=== PATIENT | male | born 1955 | race Caucasian/White ===

== ENCOUNTER → 2016-09-14 | Outpatient (CLI) | payer OTHER ==
[~2016-09-14] MED LIST: COLESTID1 GM PO; CYCLOBENZAPRINE10 MG PO; FLEXERIL10 MG PO; FLEXERIL5 MG PO; FOLIC ACID1 MG PO; Habitrol,Nicoderm CQ TD; LOPRESSOR50 MG PO; Lopressor PO; METOPROLOL TARTATE PO; MOBIC15 MG PO; MOBIC7.5 MG PO; NORVASC10 MG PO; Norvasc PO; PRILOSEC20 MG PO; PROVENTIL HFA6.7 GM IH; SPIRIVA1 INHALATI IH; VITAMIN B1 PO
== END | disposition home or self-care (01) ==
LOC: RES 10:57
DX: Z02.71 Encounter for disability determination (principal)
CPT/HCPCS: 94060; 94729; 94760

== ENCOUNTER 2016-11-30 10:58 | Day surgery (SDC) | payer OTHER ==
[~2016-11-30] VITALS: Ht 182.9 cm; Wt 79.4 kg
[2016-11-30] MEDS ORDERED: ASPIR 8181 M1 PO (11:30)
[2016-11-30] MEDS ORDERED: PERCOCET 5/31 TABLET PO (11:31)
[2016-11-30 11:43] VITALS: BP 121/80
[2016-11-30 14:59] VITALS: BP 140/87
[2016-11-30 15:53] VITALS: BP 139/80
== END 2016-11-30 15:55 | disposition home or self-care (01) ==
LOC: SDC 10:58
PROC: 0JBK0ZZ Excision of Left Hand Subcutaneous Tissue and Fascia, Open Approach (ICD-10-PCS; principal; 2016-11-30)
DX: M72.0 Palmar fascial fibromatosis [Dupuytren] (principal); I10 Essential (primary) hypertension; J44.9 Chronic obstructive pulmonary disease, unspecified; F10.20 Alcohol dependence, uncomplicated; F17.200 Nicotine dependence, unspecified, uncomplicated
CPT/HCPCS: J0690; J1100; J1170; J2405; J3010; S0020

== ENCOUNTER 2017-06-02 22:12 | Emergency (ER) | payer OTHER ==
[~2017-06-02] VITALS: Ht 182.9 cm; Wt 70.1 kg
[~2017-06-02 22:12] MED LIST changes: +ASPIR 8181 M1 PO; +PERCOCET 5/31 TABLET PO
[2017-06-02 22:31] LABS: HEMATOCRIT 42.1 % (38.0-50.0); HEMOGLOBIN 15.6 G/DL (12.5-16.6); MCH 37.5 PG (29.0-34.0); MCHC 37.1 G/DL (30.0-36.0); MCV 101.2 FL (86-99); PLATELET COUNT 96 K/uL (156-360); RBC DIS.WIDTH-CV 11.9 % (11.8-14.6); RBC DIS.WIDTH-SD 44.3 % (39-53); RED BLOOD COUNT 4.16 M/uL (4.00-5.50); WHITE BLOOD COUNT 4.9 K/uL (4.1-10.2)
[2017-06-02 22:44] LABS: CHLORIDE 101 mEq/L (99-109); POTASSIUM 3.9 mEq/L (3.7-5.4); SODIUM 139 mEq/L (136-147)
[2017-06-02 22:45] LABS: GLUCOSE 104 mg/dL (70-99)
[2017-06-02 22:49] LABS: CREATININE 0.7 mg/dL (0.6-1.3); GFR ESTIMATE (CALCULATED) > 59 mL/min/ (58.99-99999)
[2017-06-02 22:50] LABS: UREA NITROGEN (BUN) 8 mg/dL (9-23)
[2017-06-02 22:55] LABS: TROP-I INTERPRETATION NEGATIVE; TROPONIN-I 0.01 ng/mL (0.0-0.30)
[2017-06-02] MEDS ORDERED: DOXYCYCLINE HY100 MG PO (23:28)
[2017-06-03 00:09] VITALS: BP 123/85
== END 2017-06-03 00:09 | disposition home or self-care (01) ==
LOC: EME → EDBD 22:12 → EME 06-03 00:09
DX: J18.9 Pneumonia, unspecified organism (principal); I10 Essential (primary) hypertension; J44.0 Chronic obstructive pulmonary disease with (acute) lower respiratory infection; F17.200 Nicotine dependence, unspecified, uncomplicated; Z79.82 Long term (current) use of aspirin; Z99.81 Dependence on supplemental oxygen; Z87.19 Personal history of other diseases of the digestive system
CPT/HCPCS: 71046; 80048; 84484; 85027; 93005; 99281; 99285

== ENCOUNTER 2017-06-06 20:32 | Emergency (ER) | payer OTHER ==
[~2017-06-06] VITALS: Ht 182.9 cm; Wt 77.3 kg
[~2017-06-06 20:32] MED LIST changes: +DOXYCYCLINE HY100 MG PO
[2017-06-06 20:55] VITALS: BP 147/91
== END 2017-06-06 23:30 | disposition home or self-care (01) ==
LOC: EME 20:32
PROC: 0HQ0XZZ Repair Scalp Skin, External Approach (ICD-10-PCS; principal; 2017-06-06)
DX: S01.01XA Laceration without foreign body of scalp, initial encounter (principal); W10.1XXA Fall (on)(from) sidewalk curb, initial encounter; Y92.480 Sidewalk as the place of occurrence of the external cause; F17.200 Nicotine dependence, unspecified, uncomplicated; Z79.82 Long term (current) use of aspirin
CPT/HCPCS: 70450; 99281; 99284

== ENCOUNTER 2017-07-31 16:17 | Emergency (ER) | payer OTHER ==
[~2017-07-31] VITALS: Ht 182.9 cm; Wt 63.8 kg
[~2017-07-31 16:17] MED LIST changes: -VITAMIN B1 PO; +VITAMIN B12 100MCG PO
[2017-07-31 19:38] VITALS: BP 128/97
== END 2017-07-31 19:37 | disposition home or self-care (01) ==
LOC: EME 16:17
DX: S61.412A Laceration without foreign body of left hand, initial encounter (principal); S51.812A Laceration without foreign body of left forearm, initial encounter; F10.129 Alcohol abuse with intoxication, unspecified; W01.0XXA Fall on same level from slipping, tripping and stumbling without subsequent striking against object, initial encounter; F12.90 Cannabis use, unspecified, uncomplicated; J43.9 Emphysema, unspecified; F17.200 Nicotine dependence, unspecified, uncomplicated; Y90.9 Presence of alcohol in blood, level not specified
CPT/HCPCS: 70450; 71046; 99281; 99283

== ENCOUNTER 2017-08-01 20:18 | Inpatient (IN) | payer OTHER ==
[~2017-08-01] VITALS: Ht 182.9 cm; Wt 53.0 kg
[2017-08-01 21:42] LABS: CHLORIDE 89 mEq/L (99-109); POTASSIUM 3.3 mEq/L (3.7-5.4); SODIUM 130 mEq/L (136-147)
[2017-08-01 21:43] LABS: MAGNESIUM 2.1 mg/dL (1.3-2.7)
[2017-08-01 21:44] LABS: GLUCOSE 98 mg/dL (70-99)
[2017-08-01 21:47] LABS: SERUM ETHYL ALCOHOL 233 mg/dL
[2017-08-01 21:48] LABS: CREATININE 0.6 mg/dL (0.6-1.3); GFR ESTIMATE (CALCULATED) > 59 mL/min/ (58.99-99999)
[2017-08-01 21:49] LABS: UREA NITROGEN (BUN) 5 mg/dL (9-23)
[2017-08-01 21:52] LABS: TROP-I INTERPRETATION NEGATIVE; TROPONIN-I 0.02 ng/mL (0.0-0.30)
[2017-08-01 22:27] LABS: HEMATOCRIT 38.9 % (38.0-50.0); HEMOGLOBIN 14.2 G/DL (12.5-16.6); MCH 36.7 PG (29.0-34.0); MCHC 36.5 G/DL (30.0-36.0); MCV 100.5 FL (86-99); PLATELET COUNT 80 K/uL (156-360); RBC DIS.WIDTH-SD 45.1 % (39-53); RED BLOOD COUNT 3.87 M/uL (4.00-5.50); WHITE BLOOD COUNT 4.7 K/uL (4.1-10.2)
[2017-08-01 22:44] LABS: FOLIC ACID (FOLATE) > 22.0 NG/ML (5.0-22.0)
[2017-08-02] VITALS (7 sets, daily range): BP systolic 134–213; BP diastolic 95–120
[2017-08-02] MEDS ORDERED: METOPROLOL TART25 MG PO (00:20)
[2017-08-02] MEDS ORDERED: MULTIVITAMIN1 EAC2 PO (00:20)
[2017-08-02] MEDS ORDERED: VITAMIN B-1100 MG PO (00:21)
[2017-08-02] MEDS ORDERED: TRAZODONE HCL50 MG PO (00:22)
[2017-08-02 03:59] LABS: ALBUMIN 3.5 g/dL (3.2-4.8)
[2017-08-02 04:00] LABS: MAGNESIUM 1.8 mg/dL (1.3-2.7)
[2017-08-02 04:02] LABS: TOTAL PROTEIN 6.2 g/dL (6.4-8.3)
[2017-08-02 04:04] LABS: TOTAL BILIRUBIN 2.1 mg/dL (0.0-1.0)
[2017-08-02 04:05] LABS: ALKALINE PHOSPHATASE 238 IU/L (3-129)
[2017-08-02 04:07] LABS: AST (GOT) 108 IU/L (2-34)
[2017-08-02 04:08] LABS: ALT (GPT) 72 IU/L (3-49); DIRECT BILIRUBIN 1.2 mg/dL (0.0-0.3)
[2017-08-02 04:09] LABS: LIPASE 21 U/L (1.0-51.0)
[2017-08-02 04:15] LABS: TROP-I INTERPRETATION NEGATIVE; TROPONIN-I 0.02 ng/mL (0.0-0.30)
[2017-08-02 05:04] LABS: APPEARANCE CLEAR ((CLEAR)); BILIRUBIN NEGATIVE; BLOOD NEGATIVE; COLOR STRAW ((YELLOW)); GLUCOSE (STRIP) NEGATIVE; KETONES NEGATIVE; LEUKOCYTES NEGATIVE; NITRITE NEGATIVE; PROTEIN (STRIP) NEGATIVE; SPECIFIC GRAVITY 1.004 (1.000-1.030); UCUL ADDED? NO; UROBILINOGEN 0.2 MG/DL (0.2-1.0)
[2017-08-02 05:09] LABS: HDL CHOLESTEROL 91 MG/DL (Desirable>=40); LDL CHOLESTEROL 89 mg/dL (Desirable<100); NON-HDL CHOLESTEROL 103 mg/dL (Desirable<160); TOTAL CHOLESTEROL 194 mg/dL (Desirable<200); TRIGLYCERIDES 72 MG/DL (Normal: <150)
[2017-08-02 05:19] LABS: HEMATOCRIT 41.6 % (38.0-50.0); MCH 36.8 PG (29.0-34.0); MCHC 36.1 G/DL (30.0-36.0); PLATELET COUNT 76 K/uL (156-360); RBC DIS.WIDTH-CV 12.1 % (11.8-14.6); RBC DIS.WIDTH-SD 45.6 % (39-53); RED BLOOD COUNT 4.08 M/uL (4.00-5.50); WHITE BLOOD COUNT 4.9 K/uL (4.1-10.2)
[2017-08-02 05:30] LABS: BENZODIAZEPINES, URINE SCREEN Negative (200 ng/mL)
[2017-08-02 05:37] LABS: CHLORIDE 98 MEQ/L (99-109); CREATININE 0.5 MG/DL (0.6-1.3); GFR ESTIMATE (CALCULATED) > 59 mL/min/ (58.99-99999); GLUCOSE 87 mg/dL (70-99); POTASSIUM 2.8 MEQ/L (3.7-5.4); SODIUM 136 MEQ/L (136-147); UREA NITROGEN (BUN) 5 mg/dL (9-23)
[2017-08-02 07:41] LABS: THYROTROPIN (TSH) 1.4 MIU/L (0.4-5.5)
[2017-08-02 09:46] LABS: HEMOGLOBIN A1c (GLYCOHEMOGLOB) 4.8 % (Below 5.7)
[2017-08-02 10:10] LABS: TROP-I INTERPRETATION NEGATIVE; TROPONIN-I 0.03 ng/mL (0.0-0.30)
[2017-08-03 04:05] VITALS: BP 186/91
[2017-08-03 06:00] LABS: CHLORIDE 96 MEQ/L (99-109); CREATININE 0.6 MG/DL (0.6-1.3); GFR ESTIMATE (CALCULATED) > 59 mL/min/ (58.99-99999); GLUCOSE 92 mg/dL (70-99); SODIUM 137 MEQ/L (136-147); UREA NITROGEN (BUN) 11 mg/dL (9-23)
[2017-08-03 07:43] VITALS: BP 133/67
[2017-08-03 11:26] VITALS: BP 132/90
[2017-08-03 16:19] VITALS: BP 126/92
[2017-08-03 20:00] VITALS: BP 136/72
[2017-08-03 23:44] VITALS: BP 129/77
[2017-08-04] VITALS (8 sets, daily range): BP systolic 97–178; BP diastolic 54–109
[2017-08-04 14:03] LABS: HEMATOCRIT 49.6 % (38.0-50.0); MCH 37.2 PG (29.0-34.0); MCHC 35.3 G/DL (30.0-36.0); MCV 105.5 FL (86-99); PLATELET COUNT 89 K/uL (156-360); RBC DIS.WIDTH-CV 12.2 % (11.8-14.6); WHITE BLOOD COUNT 5.4 K/uL (4.1-10.2)
[2017-08-04 14:10] LABS: ALBUMIN 3.5 G/DL (3.2-4.8); CHLORIDE 98 MEQ/L (99-109); POTASSIUM 3.3 MEQ/L (3.7-5.4); SODIUM 139 MEQ/L (136-147); TOTAL BILIRUBIN 2.8 MG/DL (0.0-1.0)
[2017-08-04 14:17] LABS: HEMOGLOBIN 17.5 G/DL (12.5-16.6)
[2017-08-04 14:18] LABS: ALKALINE PHOSPHATASE 272 IU/L (3-129); ALT (GPT) 96 IU/L (3-49); AST (GOT) 91 IU/L (2-34); GFR ESTIMATE (CALCULATED) > 59 mL/min/ (58.99-99999); GLUCOSE 107 mg/dL (70-99); TOTAL PROTEIN 6.5 G/DL (6.4-8.3)
[2017-08-04 14:19] LABS: UREA NITROGEN (BUN) 23 mg/dL (9-23)
[2017-08-04 17:19] LABS: DEVICE NONREBREATHER; O2 FLOW 15 L/MIN; PCO2 40 mm Hg (35-45); PO2 78 mm Hg (80-100); SITE LR; TOTAL RESP RATE 45 resp/min; pH 7.45 (7.35-7.45)
[2017-08-04 17:20] LABS: BASE EXCESS 3.5 mEq/L (-3 to +3); BICARBONATE 27.8 mEq/L (22-26); CARBOXY HGB 2.1 % (0-5); METHEMOGLOBIN 1.1 % (0-1.5); O2 SATURATION (CALCULATED) 96.4 % (95-99)
[2017-08-04 17:43] LABS: BASOPHIL (%) 0.5 % (0-1); EOSINOPHIL (%) 0.3 % (0-5); HEMATOCRIT 49.3 % (38.0-50.0); HEMOGLOBIN 17.2 G/DL (12.5-16.6); IMMATURE GRANULOCYTE (%) 0.3 % (0.0-0.7); LYMPHOCYTE COUNT 0.6 K/uL (1.0-2.8); MCH 36.9 PG (29.0-34.0); MCHC 34.9 G/DL (30.0-36.0); MCV 105.8 FL (86-99); MONOCYTE COUNT 0.8 K/uL (0-0.8); NEUTROPHIL (%) 76.9 % (45-76); NEUTROPHIL COUNT 4.8 K/uL (1.8-6.4); PLATELET COUNT 92 K/uL (156-360); RBC DIS.WIDTH-CV 12.1 % (11.8-14.6); RED BLOOD COUNT 4.66 M/uL (4.00-5.50); WHITE BLOOD COUNT 6.2 K/uL (4.1-10.2)
[2017-08-04 17:58] LABS: TROP-I INTERPRETATION NEGATIVE; TROPONIN-I 0.02 ng/mL (0.0-0.30)
[2017-08-04 18:02] LABS: ALBUMIN 3.6 G/DL (3.2-4.8); ALKALINE PHOSPHATASE 246 IU/L (3-129); ALT (GPT) 98 IU/L (3-49); AST (GOT) 94 IU/L (2-34); CHLORIDE 97 MEQ/L (99-109); GFR ESTIMATE (CALCULATED) > 59 mL/min/ (58.99-99999); GLUCOSE 124 mg/dL (70-99); SODIUM 138 MEQ/L (136-147); TOTAL PROTEIN 6.7 G/DL (6.4-8.3); UREA NITROGEN (BUN) 27 mg/dL (9-23)
[2017-08-05] VITALS (23 sets, daily range): BP systolic 98–161; BP diastolic 75–106
[2017-08-05 07:37] LABS: PTT 25.6 SEC (25-37)
[2017-08-05 08:01] LABS: pH 7.29 (7.35-7.45)
[2017-08-05 08:01] LABS: BASOPHIL (%) 0.2 % (0-1); EOSINOPHIL (%) 0 % (0-5); HEMATOCRIT 47.6 % (38.0-50.0); HEMOGLOBIN 16.4 G/DL (12.5-16.6); IMMATURE GRANULOCYTE (%) 0.6 % (0.0-0.7); LYMPHOCYTE (%) 6.7 % (15-42); LYMPHOCYTE COUNT 0.4 K/uL (1.0-2.8); MCHC 34.5 G/DL (30.0-36.0); MCV 107.4 FL (86-99); MONOCYTE COUNT 0.7 K/uL (0-0.8); NEUTROPHIL (%) 82.5 % (45-76); NEUTROPHIL COUNT 5.4 K/uL (1.8-6.4); PLATELET COUNT 108 K/uL (156-360); RBC DIS.WIDTH-CV 12.2 % (11.8-14.6); RBC DIS.WIDTH-SD 48.6 % (39-53); RED BLOOD COUNT 4.43 M/uL (4.00-5.50); WHITE BLOOD COUNT 6.6 K/uL (4.1-10.2)
[2017-08-05 08:02] LABS: BASE EXCESS -2.1 mEq/L (-3 to +3); BICARBONATE 25.5 mEq/L (22-26); CARBOXY HGB 1.5 % (0-5); DEVICE 980; FI02 100 %; MECHANICAL RATE 22 resp/min; MODE AC; PCO2 53 mm Hg (35-45); PEEP 8 CM/H20; PO2 74 mm Hg (80-100); SITE RR; TIDAL VOLUME 450 ML; TOTAL RESP RATE 22 resp/min
[2017-08-05 08:03] LABS: COMMENTS - BLOOD GASES A+C+
[2017-08-05 08:19] LABS: CHLORIDE 102 MEQ/L (99-109); GFR ESTIMATE (CALCULATED) > 59 mL/min/ (58.99-99999); GLUCOSE 181 mg/dL (70-99); POTASSIUM 3.6 MEQ/L (3.7-5.4); SODIUM 140 MEQ/L (136-147); UREA NITROGEN (BUN) 36 mg/dL (9-23)
[2017-08-05 08:50] LABS: ALBUMIN 3.5 G/DL (3.2-4.8); ALKALINE PHOSPHATASE 230 IU/L (3-129); ALT (GPT) 87 IU/L (3-49); AST (GOT) 60 IU/L (2-34); DIRECT BILIRUBIN 0.8 mg/dL (0.0-0.3); PHOSPHORUS 5.3 mg/dL (2.5-4.9); TOTAL BILIRUBIN 2.7 MG/DL (0.0-1.0); TOTAL PROTEIN 6.2 G/DL (6.4-8.3); TRIGLYCERIDES 160 MG/DL (Normal: <150)
[2017-08-05 08:58] LABS: MAGNESIUM 2.1 mg/dl (1.3-2.7)
[2017-08-05 20:22] LABS: COMMENTS - BLOOD GASES A+C+; DEVICE PB 980; FI02 70 %; SITE RR
[2017-08-05 20:23] LABS: BASE EXCESS -2 mEq/L (-3 to +3); BICARBONATE 23.1 mEq/L (22-26); CARBOXY HGB 1.4 % (0-5); MECHANICAL RATE 25 resp/min; METHEMOGLOBIN 1.2 % (0-1.5); MODE ACVC; O2 SATURATION (CALCULATED) 99.3 % (95-99); PCO2 40 mm Hg (35-45); PEEP 8 CM/H20; PO2 147 mm Hg (80-100); TIDAL VOLUME 450 ML; TOTAL RESP RATE 25 resp/min; pH 7.37 (7.35-7.45)
[2017-08-05 20:27] LABS: POTASSIUM 4.2 mEq/L (3.7-5.4); SODIUM 138 mEq/L (136-147)
[2017-08-05 20:29] LABS: GLUCOSE 233 mg/dL (70-99)
[2017-08-05 20:33] LABS: CREATININE 0.8 mg/dL (0.6-1.3); GFR ESTIMATE (CALCULATED) > 59 mL/min/ (58.99-99999)
[2017-08-05 20:34] LABS: UREA NITROGEN (BUN) 36 mg/dL (9-23)
[2017-08-05 20:38] LABS: CHLORIDE 108 mEq/L (99-109)
[2017-08-06] VITALS (24 sets, daily range): BP systolic 88–144; BP diastolic 59–102
[2017-08-06 05:26] LABS: COMMENTS - BLOOD GASES C+; DEVICE VENT; FI02 40 %; MECHANICAL RATE 25 resp/min; MODE A/C; PCO2 38 mm Hg (35-45); PEEP 7 CM/H20; PO2 70 mm Hg (80-100); SITE RR; TIDAL VOLUME 450 ML; TOTAL RESP RATE 25 resp/min; pH 7.36 (7.35-7.45)
[2017-08-06 05:27] LABS: BASE EXCESS -3.5 mEq/L (-3 to +3); BICARBONATE 21.5 mEq/L (22-26); CARBOXY HGB 1.6 % (0-5); METHEMOGLOBIN 1.1 % (0-1.5)
[2017-08-06 05:51] LABS: BASOPHIL (%) 0 % (0-1); EOSINOPHIL (%) 0 % (0-5); HEMATOCRIT 41.9 % (38.0-50.0); IMMATURE GRANULOCYTE (%) 1.8 % (0.0-0.7); LYMPHOCYTE (%) 5.1 % (15-42); LYMPHOCYTE COUNT 0.1 K/uL (1.0-2.8); MCH 37.2 PG (29.0-34.0); MCHC 33.4 G/DL (30.0-36.0); MONOCYTE (%) 15.9 % (3-12); MONOCYTE COUNT 0.4 K/uL (0-0.8); NEUTROPHIL (%) 77.2 % (45-76); NEUTROPHIL COUNT 2.1 K/uL (1.8-6.4); PLATELET COUNT 89 K/uL (156-360); RBC DIS.WIDTH-CV 12.1 % (11.8-14.6); RBC DIS.WIDTH-SD 50.2 % (39-53); RED BLOOD COUNT 3.76 M/uL (4.00-5.50); WHITE BLOOD COUNT 2.8 K/uL (4.1-10.2)
[2017-08-06 05:53] LABS: MCV 111.4 FL (86-99)
[2017-08-06 06:16] LABS: CHLORIDE 110 MEQ/L (99-109); CREATININE 0.9 MG/DL (0.6-1.3); GFR ESTIMATE (CALCULATED) > 59 mL/min/ (58.99-99999); GLUCOSE 198 mg/dL (70-99); POTASSIUM 3.8 MEQ/L (3.7-5.4); SODIUM 142 MEQ/L (136-147); UREA NITROGEN (BUN) 33 mg/dL (9-23)
[2017-08-07] VITALS (24 sets, daily range): BP systolic 97–164; BP diastolic 70–118
[2017-08-07 09:00] LABS: HEMATOCRIT 39.7 % (38.0-50.0); HEMOGLOBIN 13.6 G/DL (12.5-16.6); MCH 37.4 PG (29.0-34.0); MCHC 34.3 G/DL (30.0-36.0); MCV 109.1 FL (86-99); PLATELET COUNT 104 K/uL (156-360); RBC DIS.WIDTH-CV 12.1 % (11.8-14.6); RBC DIS.WIDTH-SD 49.2 % (39-53); RED BLOOD COUNT 3.64 M/uL (4.00-5.50); WHITE BLOOD COUNT 2.3 K/uL (4.1-10.2)
[2017-08-07 09:24] LABS: CHLORIDE 108 MEQ/L (99-109); CREATININE 0.6 MG/DL (0.6-1.3); GFR ESTIMATE (CALCULATED) > 59 mL/min/ (58.99-99999); GLUCOSE 150 mg/dL (70-99); MAGNESIUM 2.4 mg/dl (1.3-2.7); SODIUM 140 MEQ/L (136-147); UREA NITROGEN (BUN) 17 mg/dL (9-23)
[2017-08-07 18:38] LABS: CHLORIDE 108 MEQ/L (99-109); CREATININE 0.6 MG/DL (0.6-1.3); GFR ESTIMATE (CALCULATED) > 59 mL/min/ (58.99-99999); POTASSIUM 3.4 MEQ/L (3.7-5.4); SODIUM 145 MEQ/L (136-147); UREA NITROGEN (BUN) 15 mg/dL (9-23)
[2017-08-07 18:39] LABS: GLUCOSE 105 mg/dL (70-99)
[2017-08-08] VITALS (19 sets, daily range): BP systolic 113–190; BP diastolic 75–113
[2017-08-08 05:51] LABS: CHLORIDE 103 MEQ/L (99-109); CREATININE 0.5 MG/DL (0.6-1.3); GFR ESTIMATE (CALCULATED) > 59 mL/min/ (58.99-99999); GLUCOSE 109 mg/dL (70-99); POTASSIUM 3.8 MEQ/L (3.7-5.4); SODIUM 143 MEQ/L (136-147); UREA NITROGEN (BUN) 14 mg/dL (9-23)
[2017-08-09] VITALS (7 sets, daily range): BP systolic 96–183; BP diastolic 69–105
[2017-08-09 09:25] LABS: COMMENTS - BLOOD GASES A+C+; DEVICE HF; O2 FLOW 12 L/MIN; SITE RR
[2017-08-09 09:26] LABS: CARBOXY HGB 1.9 % (0-5); METHEMOGLOBIN 1.1 % (0-1.5); O2 SATURATION (CALCULATED) 88.4 % (95-99); PCO2 39 mm Hg (35-45); PO2 55 mm Hg (80-100); pH 7.52 (7.35-7.45)
[2017-08-09 09:27] LABS: BASE EXCESS 8.3 mEq/L (-3 to +3); BICARBONATE 31.8 mEq/L (22-26)
[2017-08-09 10:20] LABS: HEMATOCRIT 43.3 % (38.0-50.0); HEMOGLOBIN 15.2 G/DL (12.5-16.6); MCH 36.8 PG (29.0-34.0); MCHC 35.1 G/DL (30.0-36.0); PLATELET COUNT 117 K/uL (156-360); RBC DIS.WIDTH-CV 11.9 % (11.8-14.6); RBC DIS.WIDTH-SD 45.8 % (39-53); RED BLOOD COUNT 4.13 M/uL (4.00-5.50); WHITE BLOOD COUNT 5.3 K/uL (4.1-10.2)
[2017-08-09 10:23] LABS: MCV 104.8 FL (86-99)
[2017-08-09 10:27] LABS: CHLORIDE 102 MEQ/L (99-109); CREATININE 0.8 MG/DL (0.6-1.3); GFR ESTIMATE (CALCULATED) > 59 mL/min/ (58.99-99999); GLUCOSE 126 mg/dL (70-99); MAGNESIUM 1.9 mg/dl (1.3-2.7); PHOSPHORUS 3.4 mg/dL (2.5-4.9); POTASSIUM 3.5 MEQ/L (3.7-5.4); SODIUM 141 MEQ/L (136-147); UREA NITROGEN (BUN) 22 mg/dL (9-23)
[2017-08-10] VITALS (7 sets, daily range): BP systolic 130–165; BP diastolic 78–100
[2017-08-10 05:27] LABS: HEMATOCRIT 38.2 % (38.0-50.0); HEMOGLOBIN 13.5 G/DL (12.5-16.6); MCH 37.1 PG (29.0-34.0); MCHC 35.3 G/DL (30.0-36.0); MCV 104.9 FL (86-99); PLATELET COUNT 110 K/uL (156-360); RBC DIS.WIDTH-CV 11.6 % (11.8-14.6); RED BLOOD COUNT 3.64 M/uL (4.00-5.50); WHITE BLOOD COUNT 3.1 K/uL (4.1-10.2)
[2017-08-10 06:14] LABS: CHLORIDE 105 MEQ/L (99-109); CREATININE 0.8 MG/DL (0.6-1.3); GFR ESTIMATE (CALCULATED) > 59 mL/min/ (58.99-99999); GLUCOSE 160 mg/dL (70-99); POTASSIUM 3.4 MEQ/L (3.7-5.4); SODIUM 144 MEQ/L (136-147); UREA NITROGEN (BUN) 24 mg/dL (9-23)
[2017-08-11 03:05] VITALS: BP 150/83
[2017-08-11 05:10] LABS: HEMATOCRIT 38.1 % (38.0-50.0); HEMOGLOBIN 13.3 G/DL (12.5-16.6); MCH 37.3 PG (29.0-34.0); MCHC 34.9 G/DL (30.0-36.0); MCV 106.7 FL (86-99); PLATELET COUNT 114 K/uL (156-360); RBC DIS.WIDTH-CV 11.8 % (11.8-14.6); RBC DIS.WIDTH-SD 46.7 % (39-53); RED BLOOD COUNT 3.57 M/uL (4.00-5.50); WHITE BLOOD COUNT 2.8 K/uL (4.1-10.2)
[2017-08-11 05:35] LABS: CHLORIDE 108 MEQ/L (99-109); CREATININE 0.7 MG/DL (0.6-1.3); GFR ESTIMATE (CALCULATED) > 59 mL/min/ (58.99-99999); GLUCOSE 141 mg/dL (70-99); POTASSIUM 3.3 MEQ/L (3.7-5.4); SODIUM 143 MEQ/L (136-147); UREA NITROGEN (BUN) 20 mg/dL (9-23)
[2017-08-11 07:15] VITALS: BP 161/86
[2017-08-11 09:00] LABS: ALBUMIN 2.7 G/DL (3.2-4.8); ALT (GPT) 157 IU/L (3-49); AST (GOT) 73 IU/L (2-34); DIRECT BILIRUBIN 0.5 mg/dL (0.0-0.3); MAGNESIUM 1.9 mg/dl (1.3-2.7)
[2017-08-11 09:05] LABS: ALKALINE PHOSPHATASE 156 IU/L (3-129); TOTAL BILIRUBIN 1.4 MG/DL (0.0-1.0); TOTAL PROTEIN 4.7 G/DL (6.4-8.3)
[2017-08-11 11:00] VITALS: BP 131/80
[2017-08-11 19:07] VITALS: BP 169/81
[2017-08-11 23:22] VITALS: BP 196/92
[2017-08-12 05:03] VITALS: BP 149/92
[2017-08-12 05:26] LABS: HEMATOCRIT 44.2 % (38.0-50.0); HEMOGLOBIN 15.1 G/DL (12.5-16.6); MCH 35.8 PG (29.0-34.0); MCHC 34.2 G/DL (30.0-36.0); MCV 104.7 FL (86-99); RBC DIS.WIDTH-CV 11.8 % (11.8-14.6); RBC DIS.WIDTH-SD 45.7 % (39-53); RED BLOOD COUNT 4.22 M/uL (4.00-5.50); WHITE BLOOD COUNT 5.1 K/uL (4.1-10.2)
[2017-08-12 05:42] LABS: PLATELET COUNT 165 K/uL (156-360)
[2017-08-12 05:55] LABS: CHLORIDE 108 MEQ/L (99-109); CREATININE 0.7 MG/DL (0.6-1.3); GFR ESTIMATE (CALCULATED) > 59 mL/min/ (58.99-99999); GLUCOSE 156 mg/dL (70-99); POTASSIUM 3.7 MEQ/L (3.7-5.4); SODIUM 145 MEQ/L (136-147); UREA NITROGEN (BUN) 22 mg/dL (9-23)
[2017-08-12 07:36] VITALS: BP 123/83
[2017-08-12 11:57] VITALS: BP 124/86
[2017-08-12 16:50] VITALS: BP 111/83
[2017-08-12 19:21] VITALS: BP 127/86
[2017-08-12 23:29] VITALS: BP 182/92
[2017-08-13] VITALS (7 sets, daily range): BP systolic 111–160; BP diastolic 81–99
[2017-08-13 09:28] LABS: HEMATOCRIT 42.5 % (38.0-50.0); HEMOGLOBIN 14.6 G/DL (12.5-16.6); MCH 36.4 PG (29.0-34.0); MCHC 34.4 G/DL (30.0-36.0); PLATELET COUNT 177 K/uL (156-360); RBC DIS.WIDTH-CV 11.7 % (11.8-14.6); RBC DIS.WIDTH-SD 45.9 % (39-53); RED BLOOD COUNT 4.01 M/uL (4.00-5.50); WHITE BLOOD COUNT 5.5 K/uL (4.1-10.2)
[2017-08-13 09:53] LABS: CHLORIDE 107 MEQ/L (99-109); CREATININE 0.6 MG/DL (0.6-1.3); GFR ESTIMATE (CALCULATED) > 59 mL/min/ (58.99-99999); POTASSIUM 3.3 MEQ/L (3.7-5.4); SODIUM 144 MEQ/L (136-147); UREA NITROGEN (BUN) 17 mg/dL (9-23)
[2017-08-13 09:58] LABS: GLUCOSE 86 mg/dL (70-99)
[2017-08-14 03:49] VITALS: BP 126/87
[2017-08-14 05:39] LABS: HEMATOCRIT 42.5 % (38.0-50.0); HEMOGLOBIN 14.8 G/DL (12.5-16.6); MCH 37.3 PG (29.0-34.0); MCHC 34.8 G/DL (30.0-36.0); MCV 107.1 FL (86-99); PLATELET COUNT 173 K/uL (156-360); RBC DIS.WIDTH-CV 11.7 % (11.8-14.6); RBC DIS.WIDTH-SD 46.3 % (39-53); RED BLOOD COUNT 3.97 M/uL (4.00-5.50); WHITE BLOOD COUNT 5.4 K/uL (4.1-10.2)
[2017-08-14 06:20] LABS: CHLORIDE 103 MEQ/L (99-109); CREATININE 0.7 MG/DL (0.6-1.3); GFR ESTIMATE (CALCULATED) > 59 mL/min/ (58.99-99999); GLUCOSE 92 mg/dL (70-99); POTASSIUM 3.6 MEQ/L (3.7-5.4); SODIUM 144 MEQ/L (136-147); UREA NITROGEN (BUN) 23 mg/dL (9-23)
[2017-08-14 07:00] VITALS: BP 128/98
[2017-08-14 11:31] VITALS: BP 134/90
[2017-08-14 20:49] VITALS: BP 142/98
[2017-08-15] VITALS (7 sets, daily range): BP systolic 111–182; BP diastolic 70–91
[2017-08-15 05:34] LABS: HEMOGLOBIN 14.5 G/DL (12.5-16.6); MCH 35.6 PG (29.0-34.0); MCHC 33.7 G/DL (30.0-36.0); MCV 105.7 FL (86-99); PLATELET COUNT 175 K/uL (156-360); RBC DIS.WIDTH-CV 11.6 % (11.8-14.6); RBC DIS.WIDTH-SD 45.3 % (39-53); RED BLOOD COUNT 4.07 M/uL (4.00-5.50); WHITE BLOOD COUNT 5.7 K/uL (4.1-10.2)
[2017-08-15 06:12] LABS: CHLORIDE 105 MEQ/L (99-109); CREATININE 0.9 MG/DL (0.6-1.3); GFR ESTIMATE (CALCULATED) > 59 mL/min/ (58.99-99999); GLUCOSE 101 mg/dL (70-99); POTASSIUM 3.8 MEQ/L (3.7-5.4); SODIUM 144 MEQ/L (136-147); UREA NITROGEN (BUN) 21 mg/dL (9-23)
[2017-08-16 03:18] VITALS: BP 176/85
[2017-08-16 08:20] VITALS: BP 110/70
[2017-08-16 11:23] VITALS: BP 105/71
[2017-08-16 15:58] VITALS: BP 161/94
[2017-08-16 19:00] VITALS: BP 168/77
[2017-08-17 07:30] VITALS: BP 158/88
[2017-08-17 08:43] LABS: HEMATOCRIT 45.5 % (38.0-50.0); HEMOGLOBIN 15.8 G/DL (12.5-16.6); MCH 36.5 PG (29.0-34.0); MCHC 34.7 G/DL (30.0-36.0); MCV 105.1 FL (86-99); RBC DIS.WIDTH-CV 11.9 % (11.8-14.6); RED BLOOD COUNT 4.33 M/uL (4.00-5.50); WHITE BLOOD COUNT 6.7 K/uL (4.1-10.2)
[2017-08-17 08:51] LABS: PLATELET COUNT 231 K/uL (156-360)
[2017-08-17 09:04] LABS: CHLORIDE 103 MEQ/L (99-109); CREATININE 0.8 MG/DL (0.6-1.3); GFR ESTIMATE (CALCULATED) > 59 mL/min/ (58.99-99999); GLUCOSE 92 mg/dL (70-99); POTASSIUM 3.8 MEQ/L (3.7-5.4); SODIUM 139 MEQ/L (136-147); UREA NITROGEN (BUN) 25 mg/dL (9-23)
[2017-08-17 12:30] VITALS: BP 160/102
[2017-08-17 13:10] VITALS: BP 127/94
[2017-08-17 15:15] VITALS: BP 127/94
[2017-08-17 19:39] VITALS: BP 145/65
[2017-08-18 00:15] VITALS: BP 131/85
[2017-08-18 12:19] VITALS: BP 122/88
[2017-08-18 16:35] VITALS: BP 166/86
[2017-08-18 19:34] VITALS: BP 105/72
[2017-08-18 21:33] VITALS: BP 162/91
[2017-08-18 23:46] VITALS: BP 159/88
[2017-08-19] VITALS (9 sets, daily range): BP systolic 110–190; BP diastolic 69–92
[2017-08-20 02:36] VITALS: BP 181/81
[2017-08-20 06:50] VITALS: BP 135/68
[2017-08-20 15:55] VITALS: BP 127/75
[2017-08-20 20:51] VITALS: BP 195/94
[2017-08-20 22:59] VITALS: BP 167/79
[2017-08-21 01:17] VITALS: BP 125/81
[2017-08-21 07:12] VITALS: BP 163/69
[2017-08-21 16:46] VITALS: BP 158/72
[2017-08-22 00:20] VITALS: BP 180/90
[2017-08-22 00:55] VITALS: BP 180/89
[2017-08-22 01:15] VITALS: BP 127/80
[2017-08-22 06:18] LABS: CHLORIDE 104 MEQ/L (99-109); CREATININE 0.8 MG/DL (0.6-1.3); GFR ESTIMATE (CALCULATED) > 59 mL/min/ (58.99-99999); GLUCOSE 80 mg/dL (70-99); POTASSIUM 3.8 MEQ/L (3.7-5.4); SODIUM 142 MEQ/L (136-147); UREA NITROGEN (BUN) 12 mg/dL (9-23)
[2017-08-22 07:40] VITALS: BP 131/85
[2017-08-22] MEDS ORDERED: TAMSULOSIN HCL0.4 MG PO (09:49)
[2017-08-22] MEDS ORDERED: CLONIDINE1 EACH TD (09:49)
[2017-08-22] MEDS ORDERED: XIFAXAN550 MG PO (09:49)
[2017-08-22] MEDS ORDERED: NICOTINE PATCH1 EAC2 TD (09:50)
[2017-08-22] MEDS ORDERED: HALDOL2 MG PO (09:51)
[2017-08-22] MEDS ORDERED: DULERA 100 MCG/13 GM IH (09:51)
[2017-08-22] MEDS ORDERED: SENNA PLUS TAB1 EACH PO (09:51)
[2017-08-22] MEDS ORDERED: Chronulac,Cephulac,E PO (09:51)
[2017-08-22] MEDS ORDERED: FAMOTIDINE20 MG PO (09:51)
[2017-08-22] MEDS ORDERED: METOPROLOL TA37.5 MG PO (09:52)
== END 2017-08-22 13:20 | DRG 896 ==
LOC: EME 20:18 → 4SOUTH 08-02 03:17 → EDOF 08-02 03:17 → ENRESERV 08-02 03:22 → 4SOUTH 08-02 04:28 → 4EAST 08-02 14:22 → 4SOUTH 08-02 14:22 → ENRESERV 08-04 18:03 → 4EAST 08-04 18:07 → ENRESERV 08-05 06:18 → 4WEST 08-05 06:24 → ENRESERV 08-08 15:52 → 4EAST 08-08 17:39 → ENRESERV 08-19 15:53 → 5EAST 08-19 18:15
PROVIDERS: Emergency Medicine; Hospitalist; Internal Medicine; Internal Medicine Critical Care Medicine; Nurse Practitioner Adult Health; Physician Assistant; Student in an Organized Health Care Education/Training Program; Surgery
PROC: 5A1945Z Respiratory Ventilation, 24-96 Consecutive Hours (ICD-10-PCS; principal; 2017-08-06)
PROC: 0BH17EZ Insertion of Endotracheal Airway into Trachea, Via Natural or Artificial Opening (ICD-10-PCS; principal; 2017-08-06)
PROC: 05H633Z Insertion of Infusion Device into Left Subclavian Vein, Percutaneous Approach (ICD-10-PCS; 2017-08-06)
PROC: 0T7D7ZZ Dilation of Urethra, Via Natural or Artificial Opening (ICD-10-PCS; 2017-08-08)
DX: F10.231 Alcohol dependence with withdrawal delirium (principal); F10.221 Alcohol dependence with intoxication delirium; J96.01 Acute respiratory failure with hypoxia; J69.0 Pneumonitis due to inhalation of food and vomit; J14 Pneumonia due to Hemophilus influenzae; E43 Unspecified severe protein-calorie malnutrition; G93.41 Metabolic encephalopathy; J44.1 Chronic obstructive pulmonary disease with (acute) exacerbation; J44.0 Chronic obstructive pulmonary disease with (acute) lower respiratory infection; D69.59 Other secondary thrombocytopenia; G31.89 Other specified degenerative diseases of nervous system; E87.2 Acidosis; R13.10 Dysphagia, unspecified; K70.40 Alcoholic hepatic failure without coma; E87.6 Hypokalemia; R29.6 Repeated falls; I25.10 Atherosclerotic heart disease of native coronary artery without angina pectoris; E78.5 Hyperlipidemia, unspecified; I10 Essential (primary) hypertension; I25.2 Old myocardial infarction; F17.210 Nicotine dependence, cigarettes, uncomplicated; N35.9 Urethral stricture, unspecified; K21.9 Gastro-esophageal reflux disease without esophagitis; Y90.7 Blood alcohol level of 200-239 mg/100 ml; E87.1 Hypo-osmolality and hyponatremia; S00.33XD Contusion of nose, subsequent encounter; S20.229D Contusion of unspecified back wall of thorax, subsequent encounter; S20.219D Contusion of unspecified front wall of thorax, subsequent encounter; W19.XXXD Unspecified fall, subsequent encounter; Z91.81 History of falling; S80.02XA Contusion of left knee, initial encounter; W01.0XXA Fall on same level from slipping, tripping and stumbling without subsequent striking against object, initial encounter; E86.0 Dehydration; R40.2434 Glasgow coma scale score 3-8, 24 hours or more after hospital admission; J20.9 Acute bronchitis, unspecified; Z68.1 Body mass index [BMI] 19.9 or less, adult; Z79.82 Long term (current) use of aspirin; E51.2 Wernicke's encephalopathy; N36.8 Other specified disorders of urethra; R33.9 Retention of urine, unspecified; R26.9 Unspecified abnormalities of gait and mobility
CPT/HCPCS: 36600; 70450; 70486; 70551; 71045; 71046; 71250; 72070; 72100; 73523; 73560; 74230; 80048; 80048 91; 80053; 80061; 80076; 80306 90; 81003; 82140; 82330; 82436; 82607; 82746; 82803; 82948; 83036; 83605; 83690; 83735; 83880; 83930; 83935; 84100; 84133; 84300; 84443; 84478; 84484; 85025; 85027; 85610; 85730; 87070; 87077; 87177; 87181; 87185; 87205; 87329; 87493; 87506; 87641; 92526 GN; 92610 GN; 92611 GN; 93005; 93880; 94002; 94003; 94640; 94640 76; 94760; 94799; 97530 GO; 97530 GP; 99202; 99281; 99285; C1751; C1769; G0480; J0295; J0456; J1630; J1650; J1815; J1885; J2060; J2250; J2405; J2543; J2597; J2704; J2920; J2930; J2997; J3010; J3411; J3475; J3480; J7030; J7042; J7050; J7120; J7512; S0028

== ENCOUNTER 2017-08-25 16:35 | Emergency (ER) | payer OTHER ==
[~2017-08-25] VITALS: Ht 182.9 cm; Wt 63.5 kg
[~2017-08-25 16:35] MED LIST changes: +CLONIDINE1 EACH TD; +Chronulac,Cephulac,E PO; +DULERA 100 MCG/13 GM IH; +FAMOTIDINE20 MG PO; +HALDOL2 MG PO; +METOPROLOL TA37.5 MG PO; +METOPROLOL TART25 MG PO; +MULTIVITAMIN1 EAC2 PO; +NICOTINE PATCH1 EAC2 TD; +SENNA PLUS TAB1 EACH PO; +TAMSULOSIN HCL0.4 MG PO; +TRAZODONE HCL50 MG PO; +VITAMIN B-1100 MG PO; +XIFAXAN550 MG PO
[2017-08-25 20:12] VITALS: BP 91/81
== END 2017-08-25 20:24 ==
LOC: EME 16:35
DX: S00.93XA Contusion of unspecified part of head, initial encounter (principal); W01.0XXA Fall on same level from slipping, tripping and stumbling without subsequent striking against object, initial encounter; Z79.82 Long term (current) use of aspirin; F17.210 Nicotine dependence, cigarettes, uncomplicated; I10 Essential (primary) hypertension; J44.9 Chronic obstructive pulmonary disease, unspecified
CPT/HCPCS: 70450; 99281; 99284